=== PATIENT | male | born 1975 | race Caucasian/White ===

== ENCOUNTER 2017-12-26 14:25 | Inpatient (IN) | payer BC ==
[2017-12-26] MEDS ORDERED: HALOPERIDOL 5 MG INJ (15:10)
[2017-12-26] MEDS: SOD CHLORIDE 0.9% 1,000 ML IV ×2 (15:11→15:41)
[2017-12-26] MEDS: SOD CHLORIDE 0.9% 3,100 ML IV (15:30)
[2017-12-26] MEDS: HALOPERIDOL 5 MG INJ IM (15:41)
[2017-12-26 16:07] LABS: ADD MAN DIFF? NO
[2017-12-26 16:13] LABS: ABNORMAL IP MESSAGE 1; BASOPHILS % 0.4 % (0.0-2.0); EOSINOPHILS # 0.1 10^3/ul (0.0-0.5); EOSINOPHILS % 1.6 % (0.0-7.0); HEMOGLOBIN 13.4 g/dl (14.0-18.0); LYMPHOCYTES # 1.7 10^3/ul (0.8-2.9); LYMPHOCYTES % 34.5 % (15.0-51.0); MEAN CORPUSCULAR HEMOGLOBIN 30.1 pg (29.0-33.0); MEAN CORPUSCULAR HGB CONC 33.5 g/dl (32.0-37.0); MEAN CORPUSCULAR VOLUME 89.9 fl (82.0-101.0); MEAN PLATELET VOLUME 14.7 fl (7.4-10.4); MONOCYTE # 0.7 10^3/ul (0.3-0.9); MONOCYTES % 13.7 % (0.0-11.0); NEUTROPHIL # 2.5 10^3/ul (1.6-7.5); NEUTROPHILS % 49.6 % (39.0-77.0); PLATELET COUNT 128 10^3/UL (140-415); POSITIVE DIFF @See below; RED BLOOD COUNT 4.45 10^6/ul (4.70-6.10); RED CELL DISTRIBUTION WIDTH 12.8 % (11.5-14.5)
[2017-12-26 16:26] LABS: ADD UMIC NO; UR ASCORBIC ACID NEGATIVE (NEGATIVE); UR BILIRUBIN (Dip) NEGATIVE (NEGATIVE); UR BLOOD (Dip) NEGATIVE (NEGATIVE); UR CLARITY CLEAR (CLEAR); UR COLOR YELLOW (YELLOW); UR GLUCOSE (Dip) NEGATIVE (NEGATIVE); UR KETONES (Dip) TRACE mg/dL (NEGATIVE); UR LEUKOCYTE ESTERASE (Dip) NEGATIVE Leu/ul (NEGATIVE); UR NITRITE (Dip) NEGATIVE (NEGATIVE); UR SPECIFIC GRAVITY (Dip) 1.015 (1.003-1.030); UR TOTAL PROTEIN (Dip) NEGATIVE (NEGATIVE); UR UROBILINOGEN (Dip) NEGATIVE (NEGATIVE)
[2017-12-26 16:30] LABS: AMMONIA 20 umol/l (9-30)
[2017-12-26 16:33] LABS: ALANINE AMINOTRANSFERASE 23 IU/L (13-69); ALBUMIN 3.8 g/dl (3.3-4.9); ALBUMIN/GLOBULIN RATIO 1.11; ALKALINE PHOSPHATASE 81 IU/L (42-121); ANION GAP 13 (8-16); ASPARTATE AMINO TRANSFERASE 19 IU/L (15-46); BILIRUBIN,INDIRECT 0.5 mg/dl (0-1.1); BILIRUBIN,TOTAL 0.5 mg/dl (0.2-1.3); BLOOD UREA NITROGEN 9 mg/dl (7-20); CALCIUM 8.6 mg/dl (8.4-10.2); CARBON DIOXIDE 25 mmol/L (21-31); CHLORIDE 107 mmol/L (97-110); CREATINE KINASE 82 IU/L (23-200); CREATININE 0.82 mg/dl (0.61-1.24); GLUCOSE 103 mg/dl (70-220); POTASSIUM 3.9 mmol/L (3.5-5.1); SODIUM 141 mmol/L (135-144); TOTAL PROTEIN 7.2 g/dl (6.1-8.1)
[2017-12-26 16:35] LABS: ACETAMINOPHEN < 10.0 ug/ml (10.0-30.0); ETHANOL < 10.0 mg/dl; SALICYLATE < 1.0 mg/dl (5.0-30.0)
[2017-12-26] MEDS: MIDAZOLAM 1 MG/ML 2 ML INJ IV (16:59)
[2017-12-26 17:01] LABS: BENZODIAZEPINES Positive (NEGATIVE)
[2017-12-26 17:04] LABS: AMPHETAMINE/METHAMPHETAMINE Negative (NEGATIVE); BARBITURATES Negative (NEGATIVE); CANNABINOIDS Negative (NEGATIVE); COCAINE Negative (NEGATIVE); OPIATES Negative (NEGATIVE)
[2017-12-27] MEDS: LORAZEPAM 2 MG INJ IM ×3 (10:13→23:41)
[2017-12-27] MEDS ORDERED: ONDANSETRON 4 MG INJ IV (17:30)
[2017-12-27] MEDS ORDERED: ACETAMINOPHEN 325 MG TAB PO (17:30)
[2017-12-27] MEDS ORDERED: NACL 0.9% 3 ML SYG IV (19:00)
[2017-12-27] MEDS ORDERED: HYDROCODONE/APAP (5/325) TAB PO (19:00)
[2017-12-27] MEDS ORDERED: LORAZEPAM 2 MG INJ IV (19:00)
[2017-12-27] MEDS ORDERED: QUETIAPINE 25 MG TAB PO (21:00)
[2017-12-27] MEDS: RISPERIDONE 2 MG TAB PO (23:36)
[2017-12-27] MEDS: PROPRANOLOL 20 MG TAB PO (23:37)
[2017-12-28] MEDS: LORAZEPAM 1 MG TAB PO ×2 (01:13→05:14)
[2017-12-28] MEDS: RISPERIDONE 2 MG TAB PO ×2 (09:02→23:01)
[2017-12-28] MEDS: PROPRANOLOL 20 MG TAB PO ×3 (09:04→23:01)
[2017-12-28] MEDS: ENOXAPARIN 40 MG/0.4 ML SYG SC (09:07)
[2017-12-29] MEDS: RISPERIDONE 2 MG TAB PO ×2 (09:00→22:21)
[2017-12-29] MEDS: PROPRANOLOL 20 MG TAB PO ×4 (09:00→22:22)
[2017-12-29] MEDS: ENOXAPARIN 40 MG/0.4 ML SYG SC (09:00)
[2017-12-30] MEDS: RISPERIDONE 2 MG TAB PO ×2 (09:46→20:40)
[2017-12-30] MEDS: PROPRANOLOL 20 MG TAB PO ×3 (09:46→20:43)
[2017-12-30] MEDS: ENOXAPARIN 40 MG/0.4 ML SYG SC (09:47)
[2017-12-30] MEDS: ZOLPIDEM 5 MG TAB PO (20:43)
[2017-12-31 03:59] LABS: ADD UMIC NO; UR ASCORBIC ACID NEGATIVE (NEGATIVE); UR BILIRUBIN (Dip) NEGATIVE (NEGATIVE); UR BLOOD (Dip) NEGATIVE (NEGATIVE); UR CLARITY CLEAR (CLEAR); UR COLOR YELLOW (YELLOW); UR GLUCOSE (Dip) NEGATIVE (NEGATIVE); UR KETONES (Dip) NEGATIVE (NEGATIVE); UR LEUKOCYTE ESTERASE (Dip) NEGATIVE Leu/ul (NEGATIVE); UR NITRITE (Dip) NEGATIVE (NEGATIVE); UR SPECIFIC GRAVITY (Dip) 1.011 (1.003-1.030); UR TOTAL PROTEIN (Dip) NEGATIVE (NEGATIVE); UR UROBILINOGEN (Dip) NEGATIVE (NEGATIVE)
[2017-12-31] MEDS: RISPERIDONE 2 MG TAB PO (09:16)
[2017-12-31] MEDS: PROPRANOLOL 20 MG TAB PO ×3 (09:17→22:01)
[2017-12-31] MEDS: ENOXAPARIN 40 MG/0.4 ML SYG SC (09:24)
[2017-12-31] MEDS: NEOMYC/POLYMYX/BACIT 30 GM OINT TOP (18:02)
[2017-12-31] MEDS: ZOLPIDEM 5 MG TAB PO (22:00)
[2018-01-01] MEDS: NEOMYC/POLYMYX/BACIT 30 GM OINT TOP (08:31)
[2018-01-01] MEDS: PROPRANOLOL 20 MG TAB PO ×3 (08:33→20:27)
[2018-01-01] MEDS: ENOXAPARIN 40 MG/0.4 ML SYG SC (08:35)
[2018-01-01] MEDS: DOCUSATE SODIUM 100 MG CAP PO ×2 (08:37→20:25)
[2018-01-01] MEDS: POLYETHYLENE GLYCOL 17 GM PACKET PO (08:37)
[2018-01-02] MEDS: DOCUSATE SODIUM 100 MG CAP PO (09:45)
[2018-01-02] MEDS: POLYETHYLENE GLYCOL 17 GM PACKET PO (09:45)
[2018-01-02] MEDS: PROPRANOLOL 20 MG TAB PO ×2 (09:46→13:00)
[2018-01-02] MEDS: ENOXAPARIN 40 MG/0.4 ML SYG SC (09:56)
[2018-01-02] MEDS: NEOMYC/POLYMYX/BACIT 30 GM OINT TOP (10:27)
== END 2018-01-02 15:16 | DRG 57 ==
LOC: PP2 12-27 19:35 → E/R 14:25 → PP2 12-27 17:11
DX: G10 Huntington's disease (principal); F02.81 Dementia in other diseases classified elsewhere, unspecified severity, with behavioral disturbance; R33.0 Drug induced retention of urine; T43.595A Adverse effect of other antipsychotics and neuroleptics, initial encounter; Y92.10 Unspecified residential institution as the place of occurrence of the external cause; R45.1 Restlessness and agitation; L55.0 Sunburn of first degree
CPT/HCPCS: 36415; 70450; 71045; 80053; 80307; 81003; 82140; 82550; 85025; 87081; 87086; 93005; 96372; 99285-25; G0378